=== PATIENT | male | born 1985 | race African-American/Black ===

== ENCOUNTER 2017-07-17 02:27 | Emergency (ER) | payer MEDICAID ==
[~2017-07-17] VITALS: Ht 180.3 cm; Wt 98.0 kg
[2017-07-17 02:32] VITALS: BP 151/80
[2017-07-17 03:00] LABS: Eosinophils # (auto) 0.1 uL; Nucleated Red Blood Cells % 0.1 %; White Blood Cell 6.8 10^3/uL (4.4-10.8)
[2017-07-17 03:01] LABS: Basophils # (auto) 0 uL; Basophils % (auto) 0.5 % (0.0-2.0); Eosinophils % (auto) 0.7 % (0.0-7.0); Hemoglobin 17.8 g/dL (13.5-17.5); Lymphocytes # (auto) 1.3 uL; Lymphocytes % (auto) 19.5 % (10.0-50.0); Mean Corpuscular Hemoglobin 28.9 pg (28.0-32.0); Mean Corpuscular Hgb Conc. 34.2 g/dL (32.0-36.0); Mean Corpuscular Volume 84.4 fL (80.0-100.0); Mean Platelet Volume 7.1 fL (6.9-10.8); Monocytes # (auto) 0.5 uL; Monocytes % (auto) 7.4 % (0.0-12.0); Neutrophils # (auto) 4.9 uL; Neutrophils % (auto) 71.9 % (37.0-80.0); Platelet Count (auto) 206 10^3/uL (140-450); Red Cell Distribution Width 14.4 % (11.8-14.3)
[2017-07-17 03:16] LABS: Partial Thromboplastin Time 26.4 sec (22.64-33.71); Prothrombin Time 10.9 sec (9.37-12.3)
[2017-07-17 03:25] LABS: Alkaline Phosphatase 138 U/L (45-117); Anion Gap 10 (5-15); Aspartate Aminotransferase 22 U/L (15-37); Bilirubin, Total 0.5 mg/dL (0.2-1.0); Blood Urea Nitrogen 17 mg/dL (7-18); Calcium 8.8 mg/dL (8.5-10.1); Carbon Dioxide 27 mmol/L (21-32); Chloride 105 mmol/L (98-107); GFR African American 97 mL/min; GFR Non-African American 80 mL/min; Glucose 113 mg/dL (74-106); Magnesium 2.5 mg/dL (1.6-2.6); Potassium 3.9 mmol/L (3.5-5.1); Sodium 142 mmol/L (136-145); Total Protein 7.9 g/dL (6.4-8.2)
[2017-07-17 04:27] LABS: B-Type Natriuretic Peptide < 5.0 pg/mL (0-100); Temperature: 21.1 C (20.0-25.0)
== END 2017-07-17 07:15 | disposition home or self-care (01) ==
LOC: ER 02:31
DX: J01.10 Acute frontal sinusitis, unspecified (principal); J02.9 Acute pharyngitis, unspecified; R00.2 Palpitations; Z88.0 Allergy status to penicillin
CPT/HCPCS: 36415; 71010; 80053; 83735; 83880; 84443; 84484; 85025; 85610; 85730; 93005

== ENCOUNTER 2020-12-01 22:09 | Emergency (ER) | payer SELFPAY ==
[~2020-12-01] VITALS: Ht 177.8 cm; Wt 104.3 kg
[2020-12-01 22:16] VITALS: BP 162/80
== END 2020-12-02 02:22 | disposition left against medical advice (07) ==
LOC: EDBD 22:09 → ER 22:12
DX: M54.2 Cervicalgia (principal); Z53.21 Procedure and treatment not carried out due to patient leaving prior to being seen by health care provider
CPT/HCPCS: 72125